=== PATIENT | female | born 1995 | race Hispanic/Latino ===

== ENCOUNTER 2016-06-23 10:46 | Emergency (ER) | payer OTHER ==
[~2016-06-23] VITALS: Ht 160 cm; Wt 52.3 kg
[2016-06-23 10:58] VITALS: BP 102/56; PULSE 81; RESP 16; O2SAT 98
--- NOTE | 2016-06-23 11:52 | ED.REPORT ---
HPI-Preg Under 20 Weeks Date of Service Jun 23, 2016 ED Provider: Lisa Montes History of Present Illness: had a US today for . Sent for US by urgent care. Then sent here after us. feeling fine, scant bleeding. Found out she is today. no menses for 1.5 years. no pain. on depo last injection 04/12/2016 Patient does not report truthfully. Found out she was 2 weeks ago at Urgent care. Was sent for a US on 06/08/2016. Did not go to ultrasound. Went to ultrasound today 06/23/2016. US called report to Urgent care, sent here. 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 Ambulatory Status Independent Review of Systems Basic Review of Systems ENT: Hearing NL, No pain, No nasal congestion, No pharyngeal pain Psychiatric: Normal thought content Physical Exam Initial Vital Signs Vital Signs (First) Date Time Temp Pulse Resp B/P Pulse Ox O2 Delivery O2 Flow Rate FiO2 06/23/16 10:58 36.5 81 16 102/56 98 06/23/16 14:08 Room Air Initial VS: Reviewed, Vital signs normal Head / Eyes: Atraumatic, Normocephalic, PERRL ENT: Mucous membranes moist, Conjunctiva normal, No scleral icterus Neck: Supple, Non-tender, Full range of motion Respiratory: Breath sounds normal, Clear to auscultation, No respiratory distress Cardiovascular: Regular rate & rhythm, Heart sounds normal, Intact distal pulses Back: No CVA tenderness Lymphatic: No lymphadenopathy Extremities: Vascular intact, Neuro intact, No swelling, No tenderness Skin: Warm, Dry, No cyanosis Neurologic: Alert, Oriented, Nonfocal Psychiatric: Mood/affect normal, Behavior normal, Normal thought content General/Constitutional: Awake, Alert, No acute distress, Well appearing, Well developed, Well hydrated, Well nourished, Cooperative, Not toxic appearing Abdomen: Atraumatic, Soft, Non-tender, McBurney's non-tender Female Genitourinary: Patient refused exam Respiratory / Chest: Atraumatic, Breath sounds NL, Breath sounds = bilat Cardiovascular: Heart rate NL, Regular rhythm, Heart sounds NL, No gallop Interpretation & Diagnostics Lab Results Interpretation Result Diagram: 06/23/16 1225 Test 06/23/16 12:25 White Blood Count 6.7th/mm3 (3.8-10.1) Red Blood Count 4.52mil/mm3 (3.90-5.20) Hemoglobin 13.4g/dL (12.0-15.6) Hematocrit 38.7% (35.0-46.0) Mean Corpuscular Volume 85.6fL (81-100) Mean Corpuscular Hemoglobin 29.6pg (27.0-35.0) Mean Corpuscular Hemoglobin Concent 34.6% (32.0-37.0) Red Cell Distribution Width 12.4% (12.3-15.4) Platelet Count 179bil/L (150-400) HCG Beta Subunit [id number]/mL Hold Hammond Top Tube Received (Received) US Focused OB PROCEDURE: US OB<14 WKS+OB TRANSVAG INDICATIONS: BLEEDING, OUTSIDE/PRIOR DATING DATA: First dating scan (date and location): 06/23/16. Estimated date of delivery (MILAN) from first dating scan: 02/16/70. TECHNIQUE: Real-time scanning was performed of the fetus and maternal pelvic organs, with image documentation. Endovaginal scanning was also performed to better visualize the fetus and maternal ovaries. COMPARISON: None. 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 Comments: A normal yolk sac is noted. No perigestational bleeds. Gestational sac is mildly irregular. Measurement variability in dating: +/- 4 weeks by LMP, +/- 7 days by mean sac diameter (use before 6 weeks gestation if crown-rump length not able to be measured), +/- 5 days by crown-rump length (6-12 weeks gestation). Maternal organs: Ovaries within normal limits, with left corpus luteal cyst measuring roughly 12 mm. Limited images through the kidneys demonstrate no hydronephrosis. IMPRESSION: Intrauterine gestational sac is present with a small embryonic disc measuring roughly 4 mm corresponding to 6 weeks 0 days. No definite cardiac activity is identified and the gestational sac is mildly irregular. Recommend clinical correlation and if indicated repeat ultrasound in one week could be performed to assess viability. Dictated by: Wilber Schmitz RRIsabela Interpreted: Marva Gonzalez MD on 06/23/2016 at 11:46 Re-Eval/Medical Decision Med Decision/Clinical Course Discussed with patient the HCG is going up but it may not be enough. Advised no heart tones which are usually dectable at 6 weeks. Encourage her to follow with women's. No sign of etopic or molar . Discharge & Departure Primary Impression: Weeks of gestation: less than 8 weeks Qualified Code: Z3A.01 - Less than 8 weeks gestation of Disposition: Home Patient Instructions: (ED), Diet (GEN) Additional Instructions: Your HCG on 06/08/2016 was 9200. [place] [address]. You are RH positive. The ultrasound today shows a small embryonic sac about 4 mm in size. It may be 6 weeks plus or minus 1 week. No definite heart tones is noted. The gestational sac is mildly irregular. The recommendation is to repeat the ultrasound in 1 week. Please call [facility] to schedule this. Return to the ER if pain, fever or heavy bleeding. Referrals: Annie Arzate MD (PCP) [facility] EDSupervising Provider for APC: Marco A Tidwell MD copies to: [facility] Burrows Jun 23, 2016 11:52
[2016-06-23 12:33] LABS: Mean Corpuscular Hemoglobin 29.6 pg (27.0-35.0); Mean Corpuscular Volume 85.6 fL (81-100)
[2016-06-23 14:08] VITALS: BP 91/59; PULSE 90; RESP 18; O2SAT 100
== END 2016-06-23 13:34 | disposition home or self-care (01) ==
LOC: SED 10:46
DX: Z32.01 Encounter for pregnancy test, result positive (principal); Z3A.01 Less than 8 weeks gestation of pregnancy

== ENCOUNTER 2016-07-12 05:56 | Emergency (ER) | payer OTHER ==
[~2016-07-12] VITALS: Ht 160 cm; Wt 52.3 kg
[2016-07-12 06:00] VITALS: BP 119/66; PULSE 111; RESP 17; O2SAT 99
--- NOTE | 2016-07-12 06:15 | ED.REPORT ---
HPI-Abd Pain F Under 40 Date of Service Jul 12, 2016 ED Provider: Marco A Tidwell MD This is a 20 year old female who is approximately 8 weeks presenting to the emergency department due to sudden onset abdominal pain that began 1.5 hours ago. Pt woke up from sleep with suprapubic pain that is associated with vaginal bleeding. Pt denies fever, chills, nausea, vomiting, dysuria, constipation, or diarrhea. She was seen in the ED 2 weeks ago due to mild vaginal bleeding and was discharged after having US indicating approximate 6 week gestational age. Nursing Notes Stated Complaint: 4 WKS -HAVING STOMACH PAIN Chief Complaint: Female Abdominal Pain Nursing Notes Reviewed: Yes (Pomogatel, REHAPP not reconciled) Allergies: Coded Allergies: No Known Allergies (Verified Allergy, Unknown, 08/05/15) Scheduled PRN Hydrocodone-Acetaminophen 5-325 mg (Hydrocodone-Acetaminophen 5-325 mg) 1 Each Tablet 1-2 TABLET PO Q4H PRN PRN For Pain Naproxen (Naproxen) 500 Mg Tab 500 MG PO BID PRN PRN For Pain Ondansetron ODT (Ondansetron ODT) 8 Mg Tab.rapdis 8 MG PO Q4H PRN PRN For Nausea General Time Seen by MD: 06:13 Chief Complaint Abdominal pain, # weeks Hx Obtained From: Patient Arrived By: Walk-in Sudden in Onset?: Yes Onset Occurred: Just prior to arrival Symptom Duration: Since onset Severity: Current: Moderate Pertinent Negative: Pt denies other symptoms Recent Healthcare: No recent doctor visit, No recent hospitalization Similar Sx Previous: No Past Medical History Past Medical History G1 Past Surgical History Denies Smoking History Never Smoker Social History Alcohol Use: Denies alcohol use Drug Use: Denies drug use 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 Physical Exam Initial Vital Signs Vital Signs (First) Date Time Temp Pulse Resp B/P Pulse Ox O2 Delivery O2 Flow Rate FiO2 07/12/16 06:00 36.9 111 17 119/66 99 Room Air Initial VS: Reviewed, Vital signs abnormal (HR 111) Head / Eyes: Atraumatic, Normocephalic, PERRL ENT: Mucous membranes moist, Conjunctiva normal, No scleral icterus Neck: Supple, Non-tender, Full range of motion Extremities: Vascular intact, Neuro intact, No swelling, No tenderness Skin: Warm, Dry, No cyanosis Neurologic: Alert, Oriented, Nonfocal Psychiatric: Mood/affect normal, Behavior normal, Normal thought content General/Constitutional: Awake, Alert Behavior: Positive: Anxious, Tearful Respiratory / Chest: Breath sounds NL, Breath sounds = bilat, No respiratory distress, No rales, No rhonchi, No wheezing Cardiovascular: Heart rate NL, Regular rhythm, Heart sounds NL, Peripheral circulation NL Tenderness/Guarding/Rebound: Positive: Tender suprapubic Back: Inspection NL, Non-tender, No CVA tenderness Interpretation & Diagnostics Lab Results Interpretation Result Diagram: 07/12/16 0638 07/12/16 0638 Test 07/12/16 06:15 07/12/16 06:38 Urine Color Bloody (YELLOW) Urine Appearance Turbid (CLEAR,HAZY) Urine pH Color interference Urine Specific [place] 1.030 (1.003-1.035) Urine Protein Color interferencemg/dL Urine Glucose (UA) Color interferencemg/dL Urine Ketones Color interferencemg/dL Urine Occult Blood Color interference Urine Nitrite Color interference Urine Bilirubin Color interference Urine Urobilinogen Color interferencemg/dL Urine Leukocyte Esterase Color interference Urine RBC Packed/hpf (0-2) Urine WBC 0-5/hpf (0-5) Urine Epithelial Cells None/hpf (NONE-MOD) Urine Crystals None seen (NONE SEEN) Urine Bacteria None/hpf (NONE-FEW) Urine Hyaline Casts None/lpf (NONE) Urine Granular Casts None seen (NONE SEEN) Urine Waxy Casts None seen (NONE SEEN) Urine Red Blood Cell Casts None seen (NONE SEEN) Urine White Blood Cell Casts None seen (NONE SEEN) Urine Mucus None seen (None Seen) Urine Trichomonas None seen (NONE SEEN) Urine Yeast None (NONE SEEN) Urinalysis Comment None Urine Culture Reflexed Not indicated White Blood Count 6.2th/mm3 (3.8-10.1) Red Blood Count 4.29mil/mm3 (3.90-5.20) Hemoglobin 13.0g/dL (12.0-15.6) Hematocrit 37.0% (35.0-46.0) Mean Corpuscular Volume 86.2fL (81-100) Mean Corpuscular Hemoglobin 30.3pg (27.0-35.0) Mean Corpuscular Hemoglobin Concent 35.1% (32.0-37.0) Red Cell Distribution Width 12.3% (12.3-15.4) Platelet Count 143bil/L (150-400) Neutrophils (%) (Auto) 65.8% (40-74) Lymphocytes (%) (Auto) 25.4% (14-46) Monocytes (%) (Auto) 6.3% (4-12) Eosinophils (%) (Auto) 2.1% (0-5) Basophils (%) (Auto) 0.2% (0-3) Sodium Level 138mEq/L (134-144) Potassium Level 3.6mEq/L (3.5-5.2) Chloride Level 103mEq/L (97-108) Carbon Dioxide Level 20mmol/L (18-29) Blood Urea Nitrogen 9mg/dL (6-20) Creatinine 0.32mg/dL (0.57-1.00) Estimat Glomerular Filtration Rate 373mL/min (>59) Glucose Level 95mg/dL (60-99) Calcium Level 9.0mg/dL (8.5-10.1) Total Bilirubin 0.7mg/dL (0.0-1.2) Aspartate Amino Transf (AST/SGOT) 13U/L (0-50) Alanine Aminotransferase (ALT/SGPT) 7U/L (0-32) Alkaline Phosphatase 68U/L (25-150) Total Protein 6.6g/dL (6.4-8.4) Albumin 4.3g/dL (3.4-5.0) HCG Beta Subunit 1093mIU/mL Hold Hammond Top Tube Received (Received) Lab Results Interpretation: CBC normal next and CMP normal ECG Interpretation ECG Interpretation: NSR at a rate of 82 Time: 06:28 Interpreted by: ED physician US Focused OB IMPRESSION: There is a angle intrauterine gestation. Based on the initial ultrasound, the estimated gestational age is 8 weeks, 5 days. The pole has decreased in size. No cardiac activity is present. The fetus is within the cervix. There is fluid within the endometrial cavity. The ultrasound findings are highly suspicious for demise and spontaneous . Recommend clinical correlation and followup. Re-Eval/Medical Decision Med Decision/Clinical Course This is a 20-year-old female presents complaining of abdominal pelvic cramping and bleeding. She is due for first follow-up ultrasound later this week, and should be about 7 weeks based on an ultrasound performed in the MRSA from when she was found to be at the end of May. On exam she has normal vitals, but is significantly cramping and pain initially. Ultrasound reveals a demise and the patient did have some pain and cramping, but then became quite comfortable on reexamination. She is informed of the demise and the ongoing miscarriage. Being discharged with some pain medicine and follow-up instructions. Routine precautions and return precautions reviewed. Source of Hx: Old records Re-Evaluation/Progress : Time of Eval: 08:52 Patient Status: Condition improved Differential Diagnosis: Negative: Abscess, Acute abdominal pain, Acute coronary syndrome, Bowel obstruction, Ectopic , Gun shot wound abdomen , Myocardial infarction, Peritonitis, Stab wound abdomen, Trauma, abdominal Counseled Regarding: Diagnosis, Lab results, Need for follow-up, When/why to return to ED Discharge & Departure Primary Impression: Miscarriage Disposition: Home Discharge Condition All VS Reviewed: Yes Condition: Stable (ERASED) Additional Instructions: 1. Unfortunately, the ultrasound reveals that you are having a miscarriage. 2. Expect to have bleeding and cramping over the next several days 3. Take Aleve (naproxen) 500mg twice a day for pain 4. If needed, you can also take hydrocodone/APAP 5/325 1-2 tabs up to every 6 hours for pain. NOTE: This medication contains a narcotic and causes drowsiness. No driving for at least 4 hours after taking 5. Keep your appointment on Wednesday 6. Return if new, worsening, or uncontrolled symptoms. Referrals: Annie Arzate MD (PCP) Scribe Attestation Portions of this note were transcribed by Erlin Dewey. I, Dr. Tidwell personally performed the history, physical exam and medical decision-making; I reviewed and confirmed the accuracy of the information in the transcribed note. Signed by: Erlin Dewey. 07/12/2016, 15:00. Marco A Tidwell MD Jul 12, 2016 06:15 ERLIN DEWEY Jul 12, 2016 06:25
[2016-07-12 06:35] LABS: APPEARANCE,URINE TURBID (CLEAR,HAZY); COLOR,URINE BLOODY (YELLOW); OCCULT BLOOD,URINE COLOR INTERFERENCE (NEGATIVE); PH,URINE COLOR INTERFERENCE (5.0-8.0)
[2016-07-12 06:36] LABS: UROBILINOGEN,URINE COLOR INTERFERENCE mg/dL (NORMAL)
[2016-07-12 06:51] LABS: BASOPHILS % (AUTO) 0.2 % (0-3); EOSINOPHILS % (AUTO) 2.1 % (0-5); MONOCYTES % (AUTO) 6.3 % (4-12); Mean Corpuscular Hemoglobin 30.3 pg (27.0-35.0); Mean Corpuscular Volume 86.2 fL (81-100); NEUTROPHILS % (AUTO) 65.8 % (40-74); Platelet Count 143 bil/L (150-400)
[2016-07-12] MEDS ORDERED: HYDROmorphone 1 mg/mL Inj IM ONE (08:05)
[2016-07-12] MEDS ORDERED: Ondansetron 8 mg ODT Tablet PO ONE ×2 (08:05→10:25)
--- NOTE | 2016-07-12 09:30 | DRSVH ---
PROCEDURE: US OB<14 WKS+OB TRANSVAG INDICATIONS: Bleeding and cramping OUTSIDE/PRIOR DATING DATA: Last menstrual period (LMP): Not available. LMP-based estimated date of delivery (MILAN): Not available. First dating scan (date and location): 06/15/2016 at [facility]. Estimated date of delivery (MILAN) from first dating scan: 02/16/2017. TECHNIQUE: Real-time scanning was performed of the fetus and maternal pelvic organs, with image documentation. Endovaginal scanning was also performed to better visualize the fetus and maternal ovaries. COMPARISON: [facility] Ultrasound, US, US OB<14 WKS+OB TRANSVAG, 06/23/2016, 10:06. FINDINGS: Difficult exam secondary to patient's severe pain. Embryo: There is a gestational sac. The pole is within the endocervical canal. There is fluid within the endometrium cavity. [employer] Ultrasound Procedure Report Early Gestation [employer] Mean Gestational Sac Diameter: - Gestational Age (MGSD): - [place] Rump Length: 1.1 Gestational Age (CRL) based on this exam: 7 weeks 2 days Gestational Age (CRL) based on initial ultrasound: 8 weeks and 5 days Summary Fetus Summary Heart Rate: Not visualized Comments: A normal yolk sac is not seen. Measurement variability in dating: +/- 4 weeks by LMP, +/- 7 days by mean sac diameter (use before 6 weeks gestation if crown-rump length not able to be measured), +/- 5 days by crown-rump length (6-12 weeks gestation). Maternal organs: Ovaries are grossly normal. Limited images through the kidneys demonstrate no hydr onephrosis. IMPRESSION: There is a angle intrauterine gestation. Based on the initial ultrasound, the estimated g estational age is 8 weeks, 5 days. The pole has decreased in size. No cardiac activity is present. The fetus is within the cervix. There is fluid within the endometrial cavity. The ultrasoun d findings are highly suspicious for demise and spontaneous . Recommend clinical correl ation and followup. Dictated by: Emigdio Concepcion M.D. on 07/12/2016 at 9:16 Approved by: Emigdio Concepcion M.D. on 07/12/2016 at 9:28
[2016-07-12] MEDS ORDERED: diphenhydrAMINE 50 mg Capsule PO ONE (10:25)
[2016-07-12] MEDS ORDERED: ONDA8TAB10 PO (10:50)
[2016-07-12] MEDS ORDERED: NPR500T PO (10:50)
[2016-07-12] MEDS ORDERED: HYDR-4003 PO (10:50)
[2016-07-12 11:08] VITALS: BP 99/58; PULSE 67; RESP 16; O2SAT 98
== END 2016-07-12 11:09 | disposition home or self-care (01) ==
LOC: SED 05:56
DX: O03.9 Complete or unspecified spontaneous abortion without complication (principal); Z3A.08 8 weeks gestation of pregnancy
CPT/HCPCS: 36415; 76801; 76817; 80053; 81000; 84702; 85025; 96372; 99285; J1170

== ENCOUNTER 2016-11-15 19:51 | Emergency (ER) | payer OTHER ==
[~2016-11-15 19:51] MED LIST: HYDR-4003 PO; NPR500T PO; ONDA8TAB10 PO
[2016-11-15 19:54] VITALS: PULSE 86; RESP 16; O2SAT 100
--- NOTE | 2016-11-15 20:17 | ED.REPORT ---
HPI- Female Date of Service Nov 15, 2016 ED Provider: Dr. Lui Jackson The patient is a 21 year old female who is 8 weeks presents to the ED due to vaginal bleeding onset today. C/o associated lower abdominal cramping. Pt has had one miscarriage previously. She denies any other symptoms including fever, chills, nausea, vomiting, diarrhea, back pain, extremity pain, and headache. Nursing Notes Stated Complaint: BLEEDING 8 WKS Chief Complaint: & Delivery Nursing Notes Reviewed: Yes Allergies: Coded Allergies: No Known Allergies (Verified Allergy, Unknown, 11/15/16) No Active Prescriptions or Reported Meds General Time Seen by MD: 20:17 Chief Complaint Vaginal bleeding... 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 Physical Exam Initial Vital Signs Vital Signs (First) Date Time Temp Pulse Resp B/P Pulse Ox O2 Delivery O2 Flow Rate FiO2 11/15/16 19:54 37.2 86 16 100 Room Air 11/15/16 22:07 98/59 Initial VS: Reviewed Female Genitourinary: Atraumatic General/Constitutional: Awake, Alert, Cooperative Skin: Atraumatic, Color NL, No rash Head / Eyes: Atraumatic, Normocephalic ENT: Atraumatic, Mucous membranes moist Upper Extremity / MS: Atraumatic, Full range of motion, No deformity Wrist / Hand: Atraumatic, Full range of motion, No deformity Lower Extremity / Pelvis / MS: Atraumatic, Full range of motion, No deformity Ankle / Foot: Atraumatic, Full range of motion, No deformity Neurologic: Oriented X3, Speech NL Interpretation & Diagnostics Interpretation & Diagnostics: US PELVIS TRANSABDOMINAL IMPRESSION: 6 weeks one day intrauterine gestation with adjacent subchorionic bleed. Lab Results Interpretation Result Diagram: 11/15/16205111/15/162051 Test 11/15/16 20:22 11/15/16 20:52 Urine Color Yellow (YELLOW) Urine Appearance Clear (CLEAR,HAZY) Urine pH 6.0 (5.0-8.0) Urine Specific [place] 1.020 (1.003-1.035) Urine Protein Negativemg/dL (NEG,TRACE) Urine Glucose (UA) Negativemg/dL (NEGATIVE) Urine Ketones Negativemg/dL (NEGATIVE) Urine Occult Blood Moderate (NEGATIVE) Urine Nitrite Negative (NEGATIVE) Urine Bilirubin Negative (NEGATIVE) Urine Urobilinogen Normalmg/dL (NORMAL) Urine Leukocyte Esterase Negative (NEGATIVE) Urine RBC 3-10/hpf (0-2) Urine WBC 0-5/hpf (0-5) Urine Epithelial Cells Moderate/hpf (NONE-MOD) Urine Crystals None seen (NONE SEEN) Urine Bacteria Few/hpf (NONE-FEW) Urine Hyaline Casts None/lpf (NONE) Urine Granular Casts None seen (NONE SEEN) Urine Waxy Casts None seen (NONE SEEN) Urine Red Blood Cell Casts None seen (NONE SEEN) Urine White Blood Cell Casts None seen (NONE SEEN) Urine Mucus Present (None Seen) Urine Trichomonas None seen (NONE SEEN) Urine Yeast None (NONE SEEN) Urinalysis Comment None Urine Culture Reflexed Not indicated White Blood Count 7.1th/mm3 (3.8-10.1) Red Blood Count 4.21mil/mm3 (3.90-5.20) Hemoglobin 12.5g/dL (12.0-15.6) Hematocrit 35.5% (35.0-46.0) Mean Corpuscular Volume 84.3fL (81-100) Mean Corpuscular Hemoglobin 29.7pg (27.0-35.0) Mean Corpuscular Hemoglobin Concent 35.2% (32.0-37.0) Red Cell Distribution Width 13.1% (12.3-15.4) Platelet Count 153bil/L (150-400) Sodium Level 136mEq/L (134-144) Potassium Level 3.2mEq/L (3.5-5.2) Chloride Level 101mEq/L (97-108) Carbon Dioxide Level 19mmol/L (18-29) Blood Urea Nitrogen 6mg/dL (6-20) Creatinine 0.39mg/dL (0.57-1.00) Estimat Glomerular Filtration Rate 294mL/min (>59) Glucose Level 90mg/dL (60-99) Calcium Level 9.0mg/dL (8.5-10.1) Total Bilirubin 0.7mg/dL (0.0-1.2) Aspartate Amino Transf (AST/SGOT) 14U/L (0-50) Alanine Aminotransferase (ALT/SGPT) 9U/L (0-32) Alkaline Phosphatase 64U/L (25-150) Total Protein 7.0g/dL (6.4-8.4) Albumin 4.4g/dL (3.4-5.0) HCG Beta Subunit [id number]/mL Hold Hammond Top Tube Received (Received) Re-Eval/Medical Decision Med Decision/Clinical Course 213: Pt rechecked. Ultrasound shows a 6 week 3 day with a perigestational bleed which could be the beginning a threatened miscarriage. Plan for discharge with follow up with OB. Pt understands and agrees with plan. All questions addressed. Re-Evaluation/Progress : Time of Eval: 21:30 Re-Evaluation/Progress Note: Pt rechecked. Ultrasound shows a 6 week 3 day with a perigestational bleed which could be the beginning a threatened miscarriage. Plan for discharge with follow up with OB. Pt understands and agrees with plan. All questions addressed. Counseled Regarding: Diagnosis, Lab results, Need for follow-up, When/why to return to ED Discharge & Departure Impression: Primary Impression: Threatened miscarriage Disposition: Home Discharge Condition All VS Reviewed: Yes Condition: Stable Patient Instructions: Threatened Miscarriage (ED) Additional Instructions: Thank you for entrusting us with your care today. Your ultrasound shows a 6 week 3 day with a perigestational bleed which could be the beginning a threatened miscarriage. I recommend pelvic rest until seen by your OB. Call your doctor tomorrow to set up an appointment for further evaluation. I have attached a referral. Do not hesitate to return to the Emergency Department for any new or worsening symptoms including increased pain and severe bleeding, cramping, or f you soak more then one pad an hour. Referrals: [facility] (PCP) Rafi Koroma MD, Ying MD [place], Tabitha MD [facility] Scribe Attestation Portion of this note were transcribed by Liza Mccracken. I, Dr. Jackson, personally performed the history, physical exam, and medical decision-making: I reviewed and confirmed the accuracy for the information in the transcribed note. Signed by: chantal Treviño, 11/15/16 2200 copies to: Rafi Koroma MD; Cinthya Guy MD; Nidia Tejada MD; [facility] Lui Jackson DO Nov 15, 2016 20:17 Liza Mccracken Nov 15, 2016 20:46
[2016-11-15 20:34] LABS: APPEARANCE,URINE CLEAR (CLEAR,HAZY); COLOR,URINE YELLOW (YELLOW)
[2016-11-15 20:35] LABS: OCCULT BLOOD,URINE MODERATE (NEGATIVE); UROBILINOGEN,URINE NORMAL (NORMAL)
[2016-11-15 21:08] LABS: Mean Corpuscular Hemoglobin 29.7 pg (27.0-35.0); Mean Corpuscular Volume 84.3 fL (81-100)
[2016-11-15 22:07] VITALS: BP 98/59; PULSE 77; RESP 16; O2SAT 100
--- NOTE | 2016-11-16 09:18 | DRSVH ---
PROCEDURE: US OB<14 WKS+OB TRANSVAG INDICATIONS: vaginal bleeding and cramping, 8 weeks preg OUTSIDE/PRIOR DATING DATA: Last menstrual period (LMP): Not available. LMP-based estimated date of delivery (MILAN): Not available. First dating scan (date and location): 11/15/16, this study. Estimated date of delivery (MILAN) from first dating scan: 07/10/17, plus or -5 days. TECHNIQUE: Real-time scanning was performed of the fetus and maternal pelvic organs, with image documentation. Endovaginal scanning was also performed to better visualize the fetus and maternal ovaries. COMPARISON: [facility], , OB<14 WKS+OB TRANSVAG, 07/12/2016, 6:35. FINDINGS: Embryo: [place]-rump length of 5 mm corresponds to a gestational age of 6 weeks 1 day, plus or -5 days. There is an adjacent subchorionic hemorrhage measuring 2.2 x 0.3 x 1.0 cm, small in overall size. Measurement variability in dating: +/- 4 weeks by LMP, +/- 7 days by mean sac diameter (use before 6 weeks gestation if crown-rump length not able to be measured), +/- 5 days by crown-rump length (up t o 8 weeks 6 days gestation), +/- 7 days by crown-rump length (up to 13 weeks 6 days gestation). Maternal organs: Ovaries normal considering gestational status. Limited images through the kidneys demonstrate no hydronephrosis. IMPRESSION: 6 week 1 day gestational age with the delivery date projected 07/10/17. There is a small perigestational hemorrhage as discussed above. Note: These findings are concordant with the preliminary interpretation. Dictated by: Joon Downing M.D. on 11/16/2016 at 9:13 Approved by: Joon Downing M.D. on 11/16/2016 at 9:15
== END 2016-11-15 22:08 | disposition home or self-care (01) ==
LOC: SED 19:51
DX: O20.0 Threatened abortion (principal); Z3A.01 Less than 8 weeks gestation of pregnancy

== ENCOUNTER 2016-11-21 17:48 | Emergency (ER) | payer OTHER ==
[2016-11-21 17:49] VITALS: BP 106/67; PULSE 84; RESP 20; O2SAT 100
[2016-11-21 18:29] LABS: BASOPHILS % (AUTO) 0.1 % (0-3); EOSINOPHILS % (AUTO) 1.2 % (0-5); MONOCYTES % (AUTO) 7.3 % (4-12); Mean Corpuscular Hemoglobin 30.2 pg (27.0-35.0); Mean Corpuscular Volume 84.3 fL (81-100); Platelet Count 187 bil/L (150-400)
--- NOTE | 2016-11-21 21:17 | ED.REPORT ---
HPI- Female Date of Service Nov 21, 2016 ED Provider: Shreyas Woodson MD A 21 year old, 7 week () female presents to the ED with intermittent vaginal bleeding that initially began 6 days ago but returned this evening. Associated symptoms include abdominal cramping and brown vaginal discharge. Patient was recently seen in the ED on 11/15 for a threatened miscarriage and was discharged in stable condition with plan to follow up with her OB. [facility] was reassuring that the was stable. She denies any recent membrane discharge. Nursing Notes Stated Complaint: BLEEDING/7 WKS Chief Complaint: Female Abdominal Pain Nursing Notes Reviewed: Yes Allergies: Coded Allergies: No Known Allergies (Verified Allergy, Unknown, 11/21/16) No Active Prescriptions or Reported Meds General Time Seen by MD: 21:15 Chief Complaint Vaginal bleeding... Hx Obtained From: Patient Arrived By: Walk-in Sudden in Onset?: No Onset Occurred: 6 days ago Context of Onset: , 1st trimester Symptom Duration: Since onset Location: : Abdomen lower Quality: Cramping Radiation: Does not radiate Severity: Current: Mild Severity: Maximum: Moderate Associated with: Reports: Abdominal pain Pertinent Negative: Pt denies other symptoms Status: Positive - ED urine HCG : 2 Para: 1 Recent Healthcare: No recent hospitalization, Recent doctor visit Past Medical History Past Medical History Past Surgical History None reported. 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 Physical Exam Initial Vital Signs Vital Signs (First) Date Time Temp Pulse Resp B/P Pulse Ox O2 Delivery O2 Flow Rate FiO2 11/21/16 17:49 36.9 84 20 106/67 100 Room Air Initial VS: Reviewed Head / Eyes: Atraumatic, Normocephalic, PERRL Neck: Supple, Non-tender, Full range of motion Extremities: Vascular intact, Neuro intact, No swelling, No tenderness Skin: Warm, Dry, No cyanosis Neurologic: Alert, Oriented, Nonfocal Psychiatric: Mood/affect normal, Behavior normal, Normal thought content Female Genitourinary: Exam deferred General/Constitutional: Awake, Alert, No acute distress Respiratory / Chest: Atraumatic, No respiratory distress Cardiovascular: Heart rate NL, Regular rhythm, Heart sounds NL Abdomen: Atraumatic, Soft, Non-tender Interpretation & Diagnostics Lab Results Interpretation Result Diagram: 11/21/16 1814 11/21/16 1915 Test 11/21/16 18:14 11/21/16 19:15 White Blood Count 8.9th/mm3 (3.8-10.1) Red Blood Count 4.47mil/mm3 (3.90-5.20) Hemoglobin 13.5g/dL (12.0-15.6) Hematocrit 37.7% (35.0-46.0) Mean Corpuscular Volume 84.3fL (81-100) Mean Corpuscular Hemoglobin 30.2pg (27.0-35.0) Mean Corpuscular Hemoglobin Concent 35.8% (32.0-37.0) Red Cell Distribution Width 13.3% (12.3-15.4) Platelet Count 187bil/L (150-400) Neutrophils (%) (Auto) 73.0% (40-74) Lymphocytes (%) (Auto) 18.3% (14-46) Monocytes (%) (Auto) 7.3% (4-12) Eosinophils (%) (Auto) 1.2% (0-5) Basophils (%) (Auto) 0.1% (0-3) Sodium Level 136mEq/L (134-144) Potassium Level 3.7mEq/L (3.5-5.2) Chloride Level 102mEq/L (97-108) Carbon Dioxide Level 20mmol/L (18-29) Blood Urea Nitrogen 9mg/dL (6-20) Creatinine 0.38mg/dL (0.57-1.00) Estimat Glomerular Filtration Rate 303mL/min (>59) Glucose Level 87mg/dL (60-99) Calcium Level 9.6mg/dL (8.5-10.1) Total Bilirubin 0.4mg/dL (0.0-1.2) Aspartate Amino Transf (AST/SGOT) 14U/L (0-50) Alanine Aminotransferase (ALT/SGPT) 7U/L (0-32) Alkaline Phosphatase 64U/L (25-150) Total Protein 7.2g/dL (6.4-8.4) Albumin 4.6g/dL (3.4-5.0) HCG Beta Subunit [id number]/mL Hold Hammond Top Tube Received (Received) US Focused OB Single live intrauterine gestation with an EGA of 7 weeks 4 days Small to moderate size air gestational hemorrhage Exam Performed by: Radiologist Re-Eval/Medical Decision Med Decision/Clinical Course 21-year-old with a threatened miscarriage and seven weeks presents with worsening bright red bleeding after initially presenting with darker at her last presentation. There was a subchorionic hemorrhage observed there, and it is larger today. HCG was rising appropriately. Blood type confirmed Rh+. She is discharged now for bedrest, with a one week off work note, and anticipate probable miscarriage. While it is not clearly inevitable, the lyly gestational bleed is increased in size, and this will likely culminate in miscarriage. Re-Evaluation/Progress : Time of Eval: 21:57 Patient Status: Condition improved Re-Evaluation/Progress Note: Patient is re-evaluated. Her symptoms have improved upon recheck. She is informed of her results and diagnosis. The patient understands and agrees with the intended treatment plan. Counseled Regarding: Diagnosis, Lab results, Need for follow-up, When/why to return to ED Discharge & Departure Impression: Primary Impression: Threatened miscarriage Additional Impression: Subchorionic bleed Fetus number: single or unspecified fetus Trimester: first trimester Qualified Code: O41.8X10 - Other specified disorders of amniotic fluid and membranes, first trimester, not applicable or unspecified Disposition: Home Discharge Condition All VS Reviewed: Yes Condition: Improved Patient Instructions: Threatened Miscarriage (ED) Additional Instructions: Continue bed rest and pelvic rest. Follow-up with your UNDERGROUND MINE SUPERINTENDENT practitioner Wednesday. If you develop sustained heavy bleeding, meaning three pads an hour for three hours, return at any time. Referrals: [facility] Scribe Attestation Portions of this note were transcribed by Evelyn Mcdermott. I, Dr. Woodson personally performed the history, physical exam and medical decision-making; I reviewed and confirmed the accuracy of the information in the transcribed note. copies to: [facility] Christopher W MD Nov 21, 2016 21:17 EVELYN MCDERMOTT Nov 21, 2016 21:43
[2016-11-22 00:26] VITALS: PULSE 69; O2SAT 100
[2016-11-22 01:12] VITALS: BP 97/60; PULSE 68; RESP 17; O2SAT 100
== END 2016-11-22 01:13 | disposition home or self-care (01) ==
LOC: SED 17:48
DX: O20.0 Threatened abortion (principal); O41.8X10 Other specified disorders of amniotic fluid and membranes, first trimester, not applicable or unspecified; Z3A.01 Less than 8 weeks gestation of pregnancy

== ENCOUNTER 2016-11-27 23:00 | Emergency (ER) | payer OTHER ==
[~2016-11-27] VITALS: Ht 160 cm; Wt 52.3 kg
[2016-11-27 23:14] VITALS: BP 103/66; PULSE 80; RESP 17; O2SAT 100
--- NOTE | 2016-11-28 00:57 | ED.REPORT ---
HPI-Preg Under 20 Weeks Date of Service Nov 28, 2016 ED Provider: Isaac Veronica MD Pt is a 21 year old female who is 7-8 weeks presenting to the ED complaining of vaginal bleeding onset at 1900 tonight, now resoled. She states that she changed 2 pads today. She was seen for similar symptoms recently and was told by her OB to come back to the ER if her bleeding returned. Denies fever , chills, nausea, vomiting, or dysuria. She currently being treated for a UTI. Seen twice in late October for vag bleeding. Rh+ with sub-chorionic bleed and 7 week IUP on ultrasound. States she is being treated for UTI and is on bed rest Nursing Notes Stated Complaint: VAGINAL BLEEDING, Chief Complaint: Female Abdominal Pain Nursing Notes Reviewed: Yes Allergies: Coded Allergies: No Known Allergies (Verified Allergy, Unknown, 11/21/16) No Active Prescriptions or Reported Meds General Time Seen by Provider: 00:58 Chief Complaint Vaginal bleeding Hx Obtained From: Patient Arrived By: Walk-in Onset Occurred: 5 - 8 hours ago Progression Since Onset: Resolved Severity: Current: No pain currently Severity: Maximum: No pain Recent Healthcare: No recent hospitalization, Recent doctor visit Similar Sx Previous: Yes Past Medical History Past Medical History Past Surgical History None reported. 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 Physical Exam Initial Vital Signs Vital Signs (First) Date Time Temp Pulse Resp B/P Pulse Ox O2 Delivery O2 Flow Rate FiO2 11/27/16 23:14 37.0 80 17 103/66 100 Room Air Initial VS: Reviewed Head / Eyes: Atraumatic, Normocephalic, PERRL ENT: Mucous membranes moist, Conjunctiva normal, No scleral icterus Neck: Supple, Non-tender, Full range of motion Respiratory: Breath sounds normal, Clear to auscultation, No respiratory distress Cardiovascular: Regular rate & rhythm, Heart sounds normal, Intact distal pulses Extremities: Vascular intact, Neuro intact, No swelling, No tenderness Skin: Warm, Dry, No cyanosis Neurologic: Alert, Oriented, Nonfocal Psychiatric: Mood/affect normal, Behavior normal, Normal thought content Abdomen: Atraumatic, No guarding, No rebound, BS normoactive Suprapubic tenderness Interpretation & Diagnostics Lab Results Interpretation Test 11/28/16 01:15 HCG Beta Subunit [id number]/mL Hold [place] Top Tube Received (Received) Re-Eval/Medical Decision Med Decision/Clinical Course 21-year-old female with first trimester bleeding, episode tonight relatively mild with 2 pads and no severe cramping no products of conception. No longer bleeding. Not having urinary symptoms. cardiac activity is seen on the ultrasound and she has a rising quantitative hCG although it is rising. The patient is aware that there is little we can do to influencing outcome of this she will continue her previous rest pattern and follow up with OB next week. Re-Evaluation/Progress #1: Time of Eval: 01:45 Patient Status: Condition improved Re-Evaluation/Progress Note: Performed bedside ultrasound. Visualized heartbeat. Re-Evaluation/Progress #2: Time of Eval: 02:37 Patient Status: Condition improved Re-Evaluation/Progress Note: Discussed plan for discharge. Pt understands and agrees with plan. Counseled Regarding: Diagnosis, Lab results, Need for follow-up, When/why to return to ED Discharge & Departure Primary Impression: Vaginal bleeding before 22 weeks gestation Additional Impression: Threatened miscarriage Disposition: Home Discharge Condition All VS Reviewed: Yes Condition: Improved Additional Instructions: Your emergency room visit today included interview, examination, labs and an ultrasound. On the ultrasound we were able to visualize a heartbeat. Follow up with your OB in the next week if symptoms persist. Return to the ER if you have any new or worsened symptoms. Referrals: [facility] Scribe Attestation Portions of this note were transcribed by Wolf Lowe. I, Dr. Veronica personally performed the history, physical exam and medical decision-making; I reviewed and confirmed the accuracy of the information in the transcribed note. Signed by : Marialuisa Hollis, 11/28/2016. Isaac Veronica MD Nov 28, 2016 00:57 WOLF LOWE Nov 28, 2016 01:05
[2016-11-28 02:49] VITALS: BP 101/52; PULSE 76; RESP 22; O2SAT 100
== END 2016-11-28 02:50 | disposition home or self-care (01) ==
LOC: SED 23:14
DX: O20.0 Threatened abortion (principal); Z3A.01 Less than 8 weeks gestation of pregnancy

== ENCOUNTER 2016-12-16 10:49 | Emergency (ER) | payer OTHER ==
[~2016-12-16] VITALS: Ht 160 cm; Wt 52.3 kg
[2016-12-16 11:17] VITALS: BP 105/64; PULSE 87; RESP 16; O2SAT 99
--- NOTE | 2016-12-16 11:22 | ED.REPORT ---
HPI- Female Date of Service Dec 16, 2016 ED Provider: Olu Casillas MD Pt is a 10 week 21 y/o female w/ a hx of presenting to the ED c/o vaginal bleeding onset this morning at 06:00. The patient found out she was at 5 weeks and since then has had 3 episodes of copious vaginal bleeding lasting 4-6 days. She was seen by [facility] [employer] TECHNICIAN Dr. Ordaz and placed on bed rest for 2 weeks. Her bleeding started again this morning at 06:00. She c/o associated mild suprapubic cramping, mild low back pain, vomiting, lightheadedness, headaches. Pt denies vision change, syncope, vaginal discharge , any other sites of bleeding. She is not sexually active. She was treated for a UTI 5 weeks ago with antibiotics and this seemed to resolve. She does not smoke, drink, or take drugs. Her last resulted in a miscarriage in April. OB US 12/04/16 interpreted as below: 1. Single living 9 week 0 day IUP area 2. Increased size of perigestational site bleed side. Nursing Notes Stated Complaint: BLEEDING/ POST DELIVERY Chief Complaint: & Delivery Nursing Notes Reviewed: Yes Allergies: Coded Allergies: No Known Allergies (Verified Allergy, Unknown, 11/21/16) No Active Prescriptions or Reported Meds General Time Seen by MD: 11:17 Chief Complaint Vaginal bleeding... Hx Obtained From: Patient Arrived By: Walk-in Sudden in Onset?: Yes Onset Occurred: 5 - 8 hours ago Symptom Duration: Since onset Location: : Suprapubic Quality: Cramping Severity: Current: Mild Severity: Maximum: Mild Past Medical History Past Medical History Past Surgical History None reported. 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 Respiratory: Denies: Shortness of breath Cardiovascular: Denies: Chest pain Physical Exam Initial Vital Signs Vital Signs (First) Date Time Temp Pulse Resp B/P Pulse Ox O2 Delivery O2 Flow Rate FiO2 12/16/16 11:17 36.2 87 16 105/64 99 Room Air Initial VS: Reviewed, Vital signs normal Head / Eyes: Atraumatic, Normocephalic ENT: Mucous membranes moist, Conjunctiva normal Neck: Supple, Full range of motion Respiratory: Breath sounds normal, Clear to auscultation, No respiratory distress Cardiovascular: Regular rate & rhythm, Heart sounds normal, Intact distal pulses Extremities: Vascular intact, Neuro intact, No swelling Skin: Warm, Dry, No cyanosis Neurologic: Alert, Oriented, Nonfocal Psychiatric: Mood/affect normal, Behavior normal, Normal thought content General/Constitutional: Awake, Alert, No acute distress, Well appearing, Cooperative, Not toxic appearing Abdomen: Atraumatic, Soft, No guarding, No rebound, No distention Tenderness/Guarding/Rebound: Positive: Tender suprapubic (mild) Interpretation & Diagnostics Lab Results Interpretation Result Diagram: 12/16/16 1215 Test 12/16/16 11:40 12/16/16 12:15 Hold Urine Received (Received) White Blood Count 6.2th/mm3 (3.8-10.1) Red Blood Count 3.83mil/mm3 (3.90-5.20) Hemoglobin 11.7g/dL (12.0-15.6) Hematocrit 33.1% (35.0-46.0) Mean Corpuscular Volume 86.4fL (81-100) Mean Corpuscular Hemoglobin 30.5pg (27.0-35.0) Mean Corpuscular Hemoglobin Concent 35.3% (32.0-37.0) Red Cell Distribution Width 13.1% (12.3-15.4) Platelet Count 167bil/L (150-400) HCG Beta Subunit [id number]/mL US Focused OB Similar to previous US, live uterine , cardiac activity present, small subchorionic bleed Official radiologist read pending Exam Performed by: Allied health pract Exam Type: Diagnostic Clinical Category: Repeat exam Exam Interpreted by: Allied health pract Re-Eval/Medical Decision Med Decision/Clinical Course 21-year-old female 10 weeks by first trimester ultrasound presenting with vaginal bleeding earlier today. Ultrasound shows subchorionic hemorrhage with good cardiac activity. Her hemoglobin is stable. Threatened . Counseled her to follow up with her NEUROSURGERY SPINE PHYSICIAN or return in 2 days if pain persists or sooner if any signs and symptoms of anemia, worsening abdominal pain other new or worsening symptoms. Counseled Regarding: Diagnosis, Lab results, Need for follow-up, When/why to return to ED Discharge & Departure Impression: Primary Impression: Threatened miscarriage Additional Impression: Subchorionic bleed Fetus number: single or unspecified fetus Trimester: first trimester Qualified Code: O41.8X10 - Other specified disorders of amniotic fluid and membranes, first trimester, not applicable or unspecified Disposition: Home Discharge Condition All VS Reviewed: Yes Condition: Stable Patient Instructions: Subchorionic Hemorrhage (ED), Threatened Miscarriage (ED) Additional Instructions: The ultrasound today was reassuring. These types of pregnancies are typically 50/50 in terms of chance of miscarriage. Off work until Wednesday. Return to the emergency department if you experience worsening or heavy bleeding , fever, chest pain, shortness of breath, worsening lightheadedness or dizziness , or for other concerning symptoms. Follow-up with your primary care doctor or Dr. Ordaz in 2-3 days for a recheck. Referrals: Pepe Ordaz MD Scribe Attestation Portions of this note were transcribed by Jewel Escobar. I, Dr. Casillas personally performed the history, physical exam and medical decision-making; I reviewed and confirmed the accuracy of the information in the transcribed note. copies to: Pepe Ordaz MD, Ben M MD Dec 16, 2016 11:21 JEWEL ESCOBAR Dec 16, 2016 12:10
[2016-12-16 12:30] LABS: Mean Corpuscular Hemoglobin 30.5 pg (27.0-35.0); Mean Corpuscular Volume 86.4 fL (81-100)
--- NOTE | 2016-12-16 13:17 | DRSVH ---
+/- 7 days from 14 weeks to 15 weeks 6 days gestation, +/- 10 days from 16 weeks to 21 weeks 6 days g estation, +/- 2 weeks from 22 weeks to 27 weeks 6 days gestation, +/- 3 weeks for 28 weeks gestation or later. PROCEDURE: US OB<14 WKS INDICATIONS: 22 year-old woman with vaginal bleeding. OUTSIDE/PRIOR DATING DATA: Last menstrual period (LMP): Not available. LMP-based estimated date of delivery (MILAN): Not available. First dating scan (date and location): 11/15/2016. Estimated date of delivery (MILAN) from first dating scan: 07/10/2017. TECHNIQUE: Real-time scanning was performed of the fetus and maternal pelvic organs, with image documentation. Endovaginal scanning was also performed to better visualize the fetus and maternal ovaries. COMPARISON: [facility], [place], OB<14 WKS, 11/22/2016, 0:31. [facility], [place], [facility] OB<14 WKS+OB TRANSVAG, 11/15/2016, 21:18. [facility], [place], US OB<14 WKS, 11/24, 7:39. FINDINGS: Embryo: There is a single living intrauterine gestation. There is a complex, loculated perigestation al fluid collection measuring 6.3 x 4.4 x 7.9 cm (previously measured 5.1 x 2.2 x 4.0 cm on 12/04/2016 ). OB-TEST DESK OPERATOR Ultrasound Procedure Report Early Gestation [employer] Mean Gestational Sac Diameter: - Gestational Age (MGSD): - [place] Rump Length: 4.23 cm Gestational Age (CRL): 11 weeks, 1 day Summary Fetus Summary Heart Rate: 169 bpm Comments: A normal yolk sac is noted. No perigestational bleeds. Measurement variability in dating: +/- 4 weeks by LMP, +/- 7 days by mean sac diameter (use before 6 weeks gestation if crown-rump length not able to be measured), +/- 5 days by crown-rump length (up t o 8 weeks 6 days gestation), +/- 7 days by crown-rump length (from 9 weeks to 13 weeks 6 days gestati on). Maternal organs: Right ovary is normal. Left ovary is not visualized. Limited images through the kid neys demonstrate no hydronephrosis. IMPRESSION: 1. A single living intrauterine gestation with appropriate interval growth. 2. A complex loculated subchorionic fluid collection consistent with perigestational hematoma. It saturnino sures 6.3 x 4.4 x 7.9 cm, slightly increased in size compared to the last exam. Dictated by: Emigdio Concepcion M.D. on 12/16/2016 at 13:09 Transcribed by: JHON on 12/16/2016 at 13:17 Approved by: Emigdio Concepcion M.D. on 12/16/2016 at 15:05
[2016-12-16 13:19] VITALS: BP 100/61; PULSE 80; RESP 16; O2SAT 100
== END 2016-12-16 13:20 | disposition home or self-care (01) ==
LOC: SED 10:49
DX: O20.0 Threatened abortion (principal); O41.8X10 Other specified disorders of amniotic fluid and membranes, first trimester, not applicable or unspecified; Z3A.10 10 weeks gestation of pregnancy; Z87.440 Personal history of urinary (tract) infections